=== PATIENT | female | born 1980 | race African-American/Black ===

== ENCOUNTER 2018-01-07 02:38 | Emergency (ER) | payer OTHER ==
[~2018-01-07] VITALS: Ht 170.2 cm; Wt 68.2 kg
[2018-01-07] MEDS ORDERED: OxyCODONE HCL/ACETAMINOPHEN 5-325 MG TABLET PO ONE (04:15)
[2018-01-07 06:02] VITALS: BP 121/75
== END 2018-01-07 06:08 | disposition home or self-care (01) ==
LOC: EMS 02:42
DX: S20.212A Contusion of left front wall of thorax, initial encounter (principal); F17.210 Nicotine dependence, cigarettes, uncomplicated; Z88.2 Allergy status to sulfonamides; Y04.0XXA Assault by unarmed brawl or fight, initial encounter; Y93.89 Activity, other specified; Y92.89 Other specified places as the place of occurrence of the external cause; Y99.8 Other external cause status
CPT/HCPCS: 71101; 99284